=== PATIENT | male | born 1940 | race Caucasian/White ===

== ENCOUNTER → 2021-06-12 19:12 | Outpatient (CLI) | payer MEDICARE, SELFPAY ==
[2021-06-13 21:52] LABS: COVID19 - ORCAS (NP or Nasal) POSITIVE (Negative)
== END ==
PROVIDERS: PCP Family Medicine; Visit Provider Physician Assistant
DX: U07.1 COVID-19 (principal)
CPT/HCPCS: U0003

== ENCOUNTER 2024-05-12 19:36 | Emergency (ER) | payer MEDICARE, BC, SELFPAY ==
[2024-05-12 19:46] VITALS: BP 112/91; PULSE 94; RESP 18; TEMP 36.2; O2SAT 95; BMI 28.0
--- NOTE | 2024-05-12 19:53 | EKG_ITS ---
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
[2024-05-12 20:16] LABS: Add Manual Diff / Slide Review NO; Basophils Absolute Auto 100 /uL (0-100); Basophils Percent Auto 0.7 % (0-2); Eosinophils Absolute Auto 100 /uL (0-450); Eosinophils Percent Auto 0.9 % (2-4); Hematocrit 40.5 % (41-53); Hemoglobin 13.2 g/dL (13.5-17.5); Lymphocytes Absolute Auto 6400 /uL (1100-4500); Lymphocytes Percent Auto 43.3 % (25-40); Mean Corpuscular HGB Conc 32.6 % (30-36); Mean Corpuscular Hemoglobin 26.9 PG (26-34); Mean Corpuscular Volume 82.5 fL (80-100); Monocytes Absolute Auto 1000 /uL (0-900); Monocytes Percent Auto 6.7 % (3-14); Neutrophils Absolute Auto 7200 /uL (1500-7000); Neutrophils Percent Auto 48.4 % (50-75); Platelet Count 227 X10^3/uL (150-400); Red Blood Cell Count 4.91 X10^6/uL (4.5-5.9); Red Cell Distribution Width 21.9 % (11.6-14.8); White Blood Cell Count 14.9 X10^3/uL (4.5-11.0)
[2024-05-12 20:27] LABS: Alanine Aminotransferase 35 IU/L (<50); Albumin 4.3 g/dL (3.5-5.0); Albumin Globulin Ratio 1.5 (1.0-2.8); Alkaline Phosphatase 66 U/L (38-126); Aspartate Aminotransferase 27 IU/L (17-59); BUN Creatinine Ratio 18.6 (6-22); Blood Urea Nitrogen 24 mg/dL (9-20); Calcium 9.1 mg/dL (8.4-10.2); Carbon Dioxide 24 mmol/L (22-32); Chloride 107 mmol/L (98-107); Estimated Glomerular Filt Rate 55 mL/min (>60); Globulin 2.8 g/dL (1.7-4.1); Glucose 107 mg/dL (80-110); HEMOLYSIS < 15 (0-50); Lipase 97 U/L (23-300); Potassium 4.5 mmol/L (3.4-5.1); Sodium 138 mmol/L (137-145); Total Protein 7.1 g/dL (6.3-8.2)
--- NOTE | 2024-05-12 20:39 | ED.ABDPAIN ---
HPI - Abdominal Pain General Chief Complaint: Abdominal Pain Stated Complaint: sent by PCP for possible appendicitis Time Seen by Provider: 05/12/24 20:22 Source: patient Mode of arrival: Ambulatory History of Present Illness HPI narrative: 83-year-old male with history of atrial fibrillation on Eliquis, coronary artery disease presents by private vehicle from home for right lower quadrant abdominal pain. Patient states that earlier today he would generalized abdominal pain with several episodes of emesis. Pain subsequently localized to the right lower quadrant. Patient called his primary care doctor, who referred him to the ER for evaluation of possible appendicitis. Related Data Home Medications Medication Instructions Recorded Confirmed clonidine HCl 0.1 mg tablet PO BID ##0 05/14/17 diltiazem HCl 180 mg 180 mg PO BID ##0 05/14/17 capsule,extended release 24 hr lithium carbonate 450 mg 450 mg PO ##0 05/14/17 tablet,extended release lurasidone 40 mg tablet (Latuda) 40 mg PO ##0 05/14/17 Previous Rx's Medication Instructions Recorded colchicine 0.6 mg tablet 0 PO QDAY #3 tabs 05/14/17 indomethacin 50 mg capsule 50 mg PO BIDP PRN #20 caps 05/14/17 ondansetron HCl 4 mg tablet 4 mg PO Q8H PRN nausea and 05/12/24 vomiting #30 tabs tamsulosin 0.4 mg capsule (Flomax) 0.4 mg PO DAILY #30 caps 05/12/24 tramadol 50 mg tablet 50 mg PO Q8H PRN pain #10 tabs 05/12/24 Allergies Allergy/AdvReac Type Severity Reaction Status Date / Time No Known Allergies Allergy Uncoded 02/04/18 12:32 Patient History Social History Smoking Status: Never smoker Smoking Status: Never smoker alcohol intake frequency: a few times a week Alcohol type: hard liquor Substance Use Type: marijuana Exam Initial Vital Signs Initial Vital Signs: Vital Signs Temperature 97.1 F L 05/12/24 19:46 Pulse Rate 94 H 05/12/24 19:46 Respiratory Rate 18 05/12/24 19:46 Blood Pressure 112/91 H 05/12/24 19:46 Pulse Oximetry 95 05/12/24 19:46 Oxygen Delivery Method Room Air 05/12/24 19:46 Const: Awake, alert, no acute distress, nontoxic appearing Cardiac: regular rate, regular rhythm RESP: unlabored, clear bilaterally, no wheezing GI: Soft, nontender, RLQ tenderness to deep palpation without rebound or guarding Skin: Warm, Dry, intact, no rashes Neuro: AO x3, CN II-XII grossly intact, moves all extremities Course Orders Ordered: ED Orders 05/12/24 19:53 EKG-12 Lead Stat 05/12/24 20:05 Complete Blood Count AUTO DIFF Stat Comprehensive Metabolic Panel Stat Lipase Stat 05/12/24 21:09 CT abdomen pelvis w con Stat 05/12/24 22:49 Urinalysis and Microscopic Stat Discontinued Medications Sodium Chloride (Normal Saline 0.9%) 1,000 mls @ 1,000 mls/hr IV BOLUS ONE Stop: 05/12/24 22:36 Last Infusion: 05/12/24 22:49 Dose: Infused Documented By: Admin: 05/12/24 21:44 Dose: 1,000 mls/hr Documented By: Morphine Sulfate (Morphine 4 Mg/Ml Inj) 4 mg IV NOW ONE Stop: 05/12/24 21:38 Last Admin: 05/12/24 21:43 Dose: 4 mg Documented By: Ondansetron HCl (Ondansetron 4 Mg/2 Ml Inj) 4 mg IV NOW PRN PRN Reason: Nausea And Vomiting Ondansetron HCl (Ondansetron 4 Mg Odt) 4 mg PO NOW PRN PRN Reason: Nausea And Vomiting Ondansetron HCl (Ondansetron 4 Mg Odt Prepack) 1 bottle MISC DIRECTED ONE Stop: 05/12/24 22:31 Last Admin: 05/12/24 22:46 Dose: 1 bottle Documented By: Tramadol HCl (Tramadol 50 Mg Prepack) 1 bottle MISC DIRECTED ONE Stop: 05/12/24 22:31 Last Admin: 05/12/24 22:46 Dose: 1 bottle Documented By: Vital Signs Vital signs: Vital Signs - 8 hr 05/12/24 19:46 05/12/24 22:58 05/12/24 23:42 Temperature 97.1 F L 98.5 F 98.3 F Pulse Rate 94 H 80 78 Respiratory Rate 18 18 18 Blood Pressure 112/91 H 135/78 134/88 Pulse Oximetry 95 98 98 Oxygen Delivery Method Room Air Room Air Room Air MDM - Abdominal Pain Lab Data 05/12/24 20:05 05/12/24 20:05 Labs: Lab Results 05/12/24 05/12/24 Range/Units 20:05 22:49 WBC 14.9 H (4.5-11.0) X10^3/uL RBC 4.91 (4.5-5.9) X10^6/uL Hgb 13.2 L (13.5-17.5) g/dL Hct 40.5 L (41-53) % MCV 82.5 (80-100) fL MCH 26.9 (26-34) PG MCHC 32.6 (30-36) % RDW 21.9 H (11.6-14.8) % Plt Count 227 (150-400) X10^3/uL Neut % (Auto) 48.4 L (50-75) % Lymph % (Auto) 43.3 H (25-40) % Gray % (Auto) 6.7 (3-14) % Eos % (Auto) 0.9 L (2-4) % Baso % (Auto) 0.7 (0-2) % Neut # (Auto) 7200 H (7602-1756) /uL Lymph # (Auto) 6400 H (4859-9549) /uL Gray # (Auto) 1000 H (0-900) /uL Eos # (Auto) 100 (0-450) /uL Baso # (Auto) 100 (0-100) /uL RBC Morphology See below Anisocytosis 1+ H Sodium 138 (137-145) mmol/L Potassium 4.5 (3.4-5.1) mmol/L Chloride 107 (98-107) mmol/L Carbon Dioxide 24 (22-32) mmol/L BUN 24 H (9-20) mg/dL Creatinine 1.29 H (0.66-1.25) mg/dL Estimated GFR 55 L (>60) mL/min BUN/Creatinine Ratio 18.6 (6-22) Glucose 107 (80-110) mg/dL Calcium 9.1 (8.4-10.2) mg/dL Total Bilirubin 1.0 (0.2-1.3) mg/dL AST 27 (17-59) IU/L ALT 35 (<50) IU/L Alkaline Phosphatase 66 (38-126) U/L Total Protein 7.1 (6.3-8.2) g/dL Albumin 4.3 (3.5-5.0) g/dL Globulin 2.8 (1.7-4.1) g/dL Albumin/Globulin Ratio 1.5 (1.0-2.8) Lipase 97 (23-300) U/L Urine Color Yellow Urine Appearance Cloudy Urine pH 5.5 (4.5-8.0) Ur Specific [place] <=1.005 (1.000-1.035) Urine Protein Negative (Negative) Urine Glucose (UA) Negative (Negative) g/dL Urine Ketones Negative (NEGATIVE) Urine Occult Blood 3+ H (Negative) Urine Nitrate Negative (Negative) Urine Bilirubin Negative (NEGATIVE) Urine Urobilinogen 0.2 (0.2) E.U./dL Ur Leukocyte Esterase Negative (NEGATIVE) Urine RBC 30-100/hpf H (0-5/HPF) Urine WBC None seen (0-5/HPF) Ur Squamous Epith Cells 0-1 /hpf (0-5/HPF) Urine Bacteria None seen (None) Ur Culture Indicated? Cult not indicated Vol Urine Centrifuged 10ml (spun) Point of care testing: Urine Dip Bedside Urine Glucose Negative Bedside Urine Bilirubin - Negative Bedside Urine Ketone - Negative Urine Specific [place] 1.010 Bedside Urine Occult Blood +++ Bedside Urine pH 5.0 Bedside Urine Protein - Negative Bedside Urine Urobilinogen - Negative Bedside Urine Nitrite - Negative Bedside Urine Leukocytes +/- [address] scan - abdomen/pelvis: Radiologist's Impression: PROCEDURE: CT ABDOMEN PELVIS W CON INDICATIONS: RLQ ABD PAIN TECHNIQUE: After the administration of intravenous contrast, axial sections acquired from the lung bases to the pubic symphysis. Coronal and sagittal reformats were performed. For radiation dose reduction, the following was used: automated exposure control, adjustment of mA and/or kV according to patient size. COMPARISON: None. FINDINGS: Image quality: Portions of the lower pelvis are suboptimally evaluated secondary to metallic streak artifact from hip arthroplasty. Lower Chest: No significant findings. ABDOMEN: Liver: No solid mass. Gallbladder: No radiopaque gallstones or wall thickening. Biliary ducts: No biliary dilation. Pancreas: No ductal dilation. Spleen: Size is within normal limits. Adrenal Glands: No adrenal nodules. Kidneys and Ureters: The right extrarenal pelvis and proximal ureter. There is a punctate calcification within the right ureter.. No solid mass. No complex renal cystic lesion which requires follow up. Nonobstructing right calculus. Simple renal cyst. Stomach and Bowel: Normal colonic caliber, without obstruction. Circumferential wall thickening is present the rectum without inflammatory change.. Peritoneum: No abnormal intraperitoneal fluid. No free air. Ventral Wall: No significant ventral hernia. Abdominal Nodes: No retroperitoneal or mesenteric adenopathy by size criteria. Vessels: Aorta and inferior vena cava are normal in size. PELVIS: Pelvic Organs: Unremarkable. Bladder: Bladder demonstrates a thickened wall with incomplete distention. Pelvic Nodes: No enlarged lymph nodes. Miscellaneous: No inguinal hernias are seen. Bones: No aggressive osseous abnormality. IMPRESSION: Punctate proximal right ureteral calculus with minimal prominence of the proximal ureter and right extrarenal pelvis. Bladder demonstrates a thickened likely secondary to incomplete distention. Circumferential thickening of the rectum without inflammatory change. While this could be secondary to incomplete distention, mass cannot be definitively excluded. Recommend follow-up with colonoscopy. Dictated by: Shaina Conley M.D. on 05/12/2024 at 22:09 Approved by: Shaina Conley M.D. on 05/12/2024 at 22:13 [facility] Narrative Medical decision making narrative: Nontoxic appearing patient presents for right lower quadrant abdominal pain concerning for appendicitis. Abdomen is soft but he was tender to deep palpation in the right lower quadrant. Labs and imaging to be obtained. Laboratory work shows WBC count 14.9, hemoglobin 13.2, platelet count 227, sodium 138, potassium 4.5, creatinine 1.29. Urinalysis with 3+ occult blood, no WBCs, no bacteria. CT shows punctate right-sided renal calculus with minimal hydronephrosis. Of note, CT reports states ?circumferential thickening of the rectum without inflammatory change. While this could be secondary to incomplete distention, mass can not be definitively excluded ?. Patient informed of lab and imaging findings. Patient states that he has had a colonoscopy within the last several years that was reportedly ?normal?. He was informed of the kidney stone on the right-hand side, however it was expected that it will pass on its own. Patient states that he has been told that he can not have anti-inflammatories, and with GFR 55 this seems reasonable. Pain medications, Flomax, antinausea medication sent to pharmacy of choice. Patient states that he was had kidney stones in the past and has followed up with Urology. Discharge Plan Departure Patient Disposition: Home Clinical Impression: Calculus of kidney Instructions: DI for Kidney Stones Activity Restrictions/Additional Instructions: You have a small kidney stone on your right-hand side. This will likely pass on its own. Pain medications, Flomax, nausea medications have been sent to [facility] Prescriptions: New tamsulosin [Flomax] 0.4 mg capsule 0.4 mg PO DAILY Qty: 30 0RF tramadol 50 mg tablet 50 mg PO Q8H PRN (Reason: pain) Qty: 10 0RF ondansetron HCl 4 mg tablet 4 mg PO Q8H PRN (Reason: nausea and vomiting) Qty: 30 0RF No Action lithium carbonate 450 MG tablet extended release 450 mg PO Qty: 0 lurasidone [Latuda] 40 MG tablet 40 mg PO Qty: 0 diltiazem HCl 180 MG capsule,extended release 24hr 180 mg PO BID Qty: 0 clonidine HCl 0.1 mg tablet PO BID Qty: 0 indomethacin 50 MG capsule 50 mg PO BIDP PRNQty: 20 0RF colchicine 0.6 MG tablet 0 PO QDAY Qty: 3 2RF Referrals: Aurora Marlow MD [Primary Care Provider] - Stand Alone Forms: Patient Portal/API
[2024-05-12 20:46] LABS: Anisocytosis 1+
--- NOTE | 2024-05-12 21:09 | DI.CT.S_ITS ---
PROCEDURE: CT ABDOMEN PELVIS W CON INDICATIONS: RLQ ABD PAIN TECHNIQUE: After the administration of intravenous contrast, axial sections acquired from the lung bases to the pubic symphysis. Coronal and sagittal reformats were performed. For radiation dose reduction, the following was used: automated exposure control, adjustment of mA and/or kV according to patient size. COMPARISON: None. FINDINGS: Image quality: Portions of the lower pelvis are suboptimally evaluated secondary to metallic streak artifact from hip arthroplasty. Lower Chest: No significant findings. ABDOMEN: Liver: No solid mass. Gallbladder: No radiopaque gallstones or wall thickening. Biliary ducts: No biliary dilation. Pancreas: No ductal dilation. Spleen: Size is within normal limits. Adrenal Glands: No adrenal nodules. Kidneys and Ureters: The right extrarenal pelvis and proximal ureter. There is a punctate calcification within the right ureter.. No solid mass. No complex renal cystic lesion which requires follow up. Nonobstructing right calculus. Simple renal cyst. Stomach and Bowel: Normal colonic caliber, without obstruction. Circumferential wall thickening is present the rectum without inflammatory change.. Peritoneum: No abnormal intraperitoneal fluid. No free air. Ventral Wall: No significant ventral hernia. Abdominal Nodes: No retroperitoneal or mesenteric adenopathy by size criteria. Vessels: Aorta and inferior vena cava are normal in size. PELVIS: Pelvic Organs: Unremarkable. Bladder: Bladder demonstrates a thickened wall with incomplete distention. Pelvic Nodes: No enlarged lymph nodes. Miscellaneous: No inguinal hernias are seen. Bones: No aggressive osseous abnormality. IMPRESSION: Punctate proximal right ureteral calculus with minimal prominence of the proximal ureter and right extrarenal pelvis. Bladder demonstrates a thickened likely secondary to incomplete distention. Circumferential thickening of the rectum without inflammatory change. While this could be secondary to incomplete distention, mass cannot be definitively excluded. Recommend follow-up with colonoscopy. Dictated by: Shaina Conley M.D. on 05/12/2024 at 22:09 Approved by: Shaina Conley M.D. on 05/12/2024 at 22:13
[2024-05-12] MEDS: MORPHINE 4 MG/ML INJ IV (21:43)
[2024-05-12] MEDS: SODIUM CHLORIDE 0.9% 1,000 ML 1000 ML IV (21:44)
[2024-05-12] MEDS: TRAMADOL 50 MG PREPACK 1 BOTTLE MISC (22:46)
[2024-05-12] MEDS: ONDANSETRON 4 MG ODT PREPACK 1 BOTTLE MISC (22:46)
[2024-05-12 22:58] VITALS: BP 135/78; PULSE 80; RESP 18; TEMP 36.9; O2SAT 98
[2024-05-12 23:21] LABS: Bilirubin Urine UA NEGATIVE (NEGATIVE); Color Urine UA YELLOW; Glucose Urine UA NEGATIVE (Negative); Ketones Urine UA NEGATIVE (NEGATIVE); Leukocyte Esterase Urine UA NEGATIVE (NEGATIVE); Nitrite Urine UA NEGATIVE (Negative); Occult Blood Urine UA 3+ (Negative); Protein Urine UA NEGATIVE (Negative); Specific Gravity Urine UA <=1.005 (1.000-1.035); Urobilinogen Urine UA 0.2 E.U./dL (0.2); pH Urine UA 5.5 (4.5-8.0)
[2024-05-12 23:22] LABS: Appearance Urine UA Cloudy; Bacteria Urine None Seen; Culture Indicated Urine Cult Not Indicated; RBC Urine 30-100/HPF (0-5/HPF); Squamous Epithelial Cell Urine 0-1 /HPF (0-5/HPF); Urine Volume 10mL (spun); WBC Urine None Seen (0-5/HPF)
[2024-05-12 23:42] VITALS: BP 134/88; PULSE 78; RESP 18; TEMP 36.8; O2SAT 98
== END 2024-05-12 23:43 | disposition home or self-care (01) ==
PROVIDERS: Emergency Provider Emergency Medicine; PCP Family Medicine
DX: N20.0 Calculus of kidney (principal)
CPT/HCPCS: 36415; 74177; 80053; 81001; 81003; 83690; 85025; 93005; 93010; 96361; 96374; 99284; J2270; Q9967